=== PATIENT | female | born 1970 | race Caucasian/White ===

== ENCOUNTER 2022-02-01 06:35 | Day surgery (SDC) | payer BC ==
[~2022-02-01] VITALS: Ht 170.2 cm; Wt 62.1 kg
[2022-02-01] MEDS ORDERED: ARMOUR THYROID30 MG PO (07:05)
[2022-02-01] MEDS ORDERED: PROMETRIUM100 MG PO (07:11)
[2022-02-01] MEDS ORDERED: MULTI VITAMINS1 TAB PO (07:11)
[2022-02-01] MEDS ORDERED: VITAMIND3 5000 PO (07:13)
[2022-02-01 07:26] VITALS: BP 104/72; PULSE 74; TEMP 97.9
[2022-02-01 08:10] VITALS: BP 110/58; PULSE 66; TEMP 97.6
--- NOTE | 2022-02-01 08:10 | NUR ---
PATIENT RETURNS TO ROOM 2 VIA CART. DOCTOR UNABLE TO COMPLETE THE PROCEDURE SO A BARIUM ENEMA WAS ORDERED. PATIENT IS TO REMAIN NPO UNTIL AFTER ENEMA. IS AT BEDSIDE. WILL WAIT FOR RADIOLOGY TO COME GET THE PATIENT. VITAL SIGNS WNL.
[2022-02-01 08:25] VITALS: BP 106/61; PULSE 61
--- NOTE | 2022-02-01 08:25 | NUR ---
PATIENT IS ALERT AND ORIENTED. WAITING ON BARIUM ENEMA. VITAL SIGNS WNL. WILL CONTINUE TO MONITOR.
[2022-02-01 08:40] VITALS: BP 108/72; PULSE 65
--- NOTE | 2022-02-01 08:40 | NUR ---
VITAL SIGNS WNL. BARIUM ENEMA SCHEDULED FOR 0900. WILL CONTINUE TO MONITOR.
--- NOTE | 2022-02-01 09:25 | NUR ---
PATIENT TO RADIOLOGY AT 09.
== END 2022-02-01 10:33 | disposition home or self-care (01) ==
LOC: SDCO 06:35
DX: Z12.11 Encounter for screening for malignant neoplasm of colon (principal); K57.30 Diverticulosis of large intestine without perforation or abscess without bleeding
CPT/HCPCS: J2704; J3010; J7120